=== PATIENT | female | born 1985 ===

== ENCOUNTER 2021-01-11 21:48 | Emergency (ER) | payer BC ==
[~2021-01-11] VITALS: Ht 152.4 cm; Wt 59.0 kg
[2021-01-11] MEDS ORDERED: NS IV 1000 ML 1,000 ML IV SCH ×2 (22:00→23:00)
[2021-01-11 22:15] LABS: BASOPHILS % (AUTO) 0 % (0-10); EOSINOPHILS # (AUTO) 0.1 10^3/uL (0.0-0.3); EOSINOPHILS % (AUTO) 1 % (0-10); HEMATOCRIT 36 % (35-52); HEMOGLOBIN 11.8 g/dL (11.5-16.0); LYMPHOCYTES # (AUTO) 2.5 10^3/uL (1.0-4.0); LYMPHOCYTES % (AUTO) 31 % (12-44); MEAN CORPUSCULAR HEMOGLOBIN 30 pg (25-34); MEAN CORPUSCULAR HGB CONC 33 g/dL (32-36); MEAN CORPUSCULAR VOLUME 90 fL (80-99); MONOCYTES # (AUTO) 0.5 10^3/uL (0.0-1.0); MONOCYTES % (AUTO) 7 % (0-12); NEUTROPHILS % (AUTO) 61 % (42-75); PLATELET COUNT 219 10^3/uL (130-400); WHITE BLOOD COUNT 8.1 10^3/uL (4.3-11.0)
[2021-01-11 22:32] LABS: INR 0.9 (0.8-1.4); PROTHROMBIN TIME PATIENT 12.8 SEC (12.2-14.7)
[2021-01-11 22:41] LABS: ALANINE AMINOTRANSFERASE 25 U/L (0-55); ALKALINE PHOSPHATASE 84 U/L (40-136); BILIRUBIN,TOTAL 0.2 MG/DL (0.1-1.0); BUN/CREATININE RATIO 19; CALCIUM 8.6 MG/DL (8.5-10.1); CARBON DIOXIDE 21 MMOL/L (21-32); CHLORIDE 107 MMOL/L (98-107); CREATININE SERUM 0.75 MG/DL (0.60-1.30); GFR ESTIMATED > 60; GLUCOSE 116 MG/DL (70-105); POTASSIUM 3.4 MMOL/L (3.6-5.0); SODIUM 140 MMOL/L (135-145); TOTAL PROTEIN 6.8 GM/DL (6.4-8.2)
[2021-01-12] MEDS ORDERED: LACTATED RINGERS 1,000 ML IV ONE (00:30)
--- NOTE | 2021-01-12 00:30 | ED GU-Female ---
General Chief Complaint: Female Reproductive Stated Complaint: POSS MISCARRIAGE Nursing Triage Note: TO ED VIA POV AND TO ROOM 2 VIA W/C. PT STATES SHE IS AND FEELS LIKE "SOMETHING IS FALLING OUT OF HER." Nursing Sepsis Screen: No Definite Risk Source: patient, spouse ( INTERPRETS AT TIMES) Exam Limitations: language barrier (PT SPEAKS FAIR SAMMARINESE. ) History of Present Illness Date Seen by Provider: Jan 11, 2021 Time Seen by Provider: 21:50 Initial Comments PT ARRIVES VIA POV FROM HOME WITH MULTIPLE FAMILY MEMBERS PT STATES SHE IS AND SHE BEGAN BLEEDING AND FEELS LIKE "SOMETHING IS FALLING OUT OF HER" PT STATES SHE HAD A NORMAL PERIOD OCT 15-, THEN HAD ANOTHER PERIOD OCT 30-, THEN HAD ANOTHER ONE NOV 10-. THEN DID NOT HAVE A PERIOD IN DECEMBER, HAD A TINY BIT OF SPOTTING YESTERDAY AND PASSED A VERY SMALL CLOT X 1 LAST NIGHT. JUST PRIOR TO ARRIVAL, SHE BEGAN TO HAVE HEAVY BLEEDING AND FELT LIKE SOMETHING IS FALLING OUT OF HER VAGINA NO ABDOMINAL PAIN NO NAUSEA/VOMITING NO FEVER NO PROBLEMS URINATING PT DID A TEST TODAY AND IT WAS POSITIVE PT IS AB 1--ALL NORMAL DELIVERIES PCP: FELISA Allergies and Home Medications Allergies Coded Allergies: Tetracycline (Verified Allergy, Unknown, 11/16/08) Patient Home Medication List Home Medication List Reviewed: Yes Review of Systems Review of Systems Constitutional: no symptoms reported; No dizziness Respiratory: no symptoms reported Cardiovascular: no symptoms reported Gastrointestinal: No abdominal pain, No nausea, No vomiting Genitourinary: see HPI LMP: Nov 10, 2020 Musculoskeletal: no symptoms reported; No back pain Skin: no symptoms reported Psychiatric/Neurological: No Symptoms Reported Endocrine: No Symptoms Reported Hematologic/Lymphatic: No Symptoms Reported Past [id number] Hx Past Med/Social Hx: Reviewed and Corrections made Patient Social History Alcohol Use: Denies Use Drug of Choice: DENIES Smoking Status: Never a Smoker Recent Infectious Disease Expo: No Seasonal Allergies Seasonal Allergies: No Past Medical History Surgeries: No Respiratory: No Cardiac: No Neurological: No : Yes Hx : 5 Hx Para: 3 Hx Total # of Abortions (Sp): 1 Reproductive Disorders: No Genitourinary: No Gastrointestinal: No Musculoskeletal: No Endocrine: No Psychosocial: No Integumentary: No Blood Disorders: No Physical Exam Vital Signs Vital Signs - First Documented 01/11/21 21:48 Pulse 93 Resp 16 B/P (MAP) 119/75 (90) O2 Delivery Room Air Capillary Refill : Less Than 3 Seconds Height, Weight, BMI Height: '" Weight: lbs. oz. kg; 25.00 BMI Method: General Appearance: WD/WN, no apparent distress (BUT ANXIOUS) HEENT: No pale conjunctivae (R), No pale conjunctivae (L) Cardiovascular: regular rate, rhythm, no murmur Respiratory: normal breath sounds, no respiratory distress, no accessory muscle use Gastrointestinal: non tender, soft, other (FUNDUS IS NOT PALPABLE. ) Pelvic: other (PT WITH BLOOD CLOTS AND PRODUCTS OF CONCEPTION ON EXTERNAL ASPECT OF VAGINA. LATER, ON SPECULUM EXAM. THERE ARE LARGE CLOTS IN VAGINA--CLEARED WITH GAUZE SPONGES. NO ACTIVE BLEEDING FROM CERVIX AT THIS TIME. CERVIX IS DILATED TO 1 FINGERTIP. UTERUS APPEARS APPROXIMATELY 6-8 WEEK SIZE. NO CERVICAL MOTION TENDERNESS. NO FUNDAL OR ADNEXAL TENDERESS. NO MASSES. ) Back: no CVA tenderness Extremities: normal inspection, no pedal edema, normal capillary refill Neurologic/Psychiatric: no motor/sensory deficits, alert, oriented x 3 Skin: normal color (PT IS ), warm/dry; No rash Progress/Results/Core Measures Suspected Sepsis Recent Fever Within 48 Hours: No Infection Criteria Present: None New/Unexplained Altered Menta: No Sepsis Screen: No Definite Risk SIRS Temperature: Pulse: 93 Respiratory Rate: 16 Laboratory Tests 01/11/21 22:05: White Blood Count 8.1 01/12/21 00:25: White Blood Count 10.7 01/12/21 01:30: White Blood Count 11.0 Blood Pressure 119 /75 Mean: 90 Laboratory Tests 01/11/21 22:05: Creatinine 0.75, INR Comment 0.9, Platelet Count 219, Total Bilirubin 0.2 01/12/21 00:25: Platelet Count 197 01/12/21 01:30: Platelet Count 183 Results/Orders Lab Results Laboratory Tests Test 01/11/21 22:05 01/12/21 00:25 01/12/21 01:30 Range/Units White Blood Count 8.1 10.7 11.0 4.3-11.0 10^3/uL Red Blood Count 3.95 3.32 L 3.17 L 3.80-5.11 10^6/uL Hemoglobin 11.8 10.0 L 9.9 L 11.5-16.0 g/dL Hematocrit 36 30 L 29 L 35-52 % Mean Corpuscular Volume 90 91 90 80-99 fL Mean Corpuscular Hemoglobin 30 30 31 25-34 pg Mean Corpuscular Hemoglobin Concent 33 33 35 32-36 g/dL Red Cell Distribution Width 12.6 12.8 12.8 10.0-14.5 % Platelet Count 219 197 183 130-400 10^3/uL Mean Platelet Volume 11.0 10.7 10.8 9.0-12.2 fL Immature Granulocyte % (Auto) 0 % Neutrophils (%) (Auto) 61 42-75 % Lymphocytes (%) (Auto) 31 12-44 % Monocytes (%) (Auto) 7 0-12 % Eosinophils (%) (Auto) 1 0-10 % Basophils (%) (Auto) 0 0-10 % Neutrophils # (Auto) 5.0 1.8-7.8 10^3/uL Lymphocytes # (Auto) 2.5 1.0-4.0 10^3/uL Monocytes # (Auto) 0.5 0.0-1.0 10^3/uL Eosinophils # (Auto) 0.1 0.0-0.3 10^3/uL Basophils # (Auto) 0.0 0.0-0.1 10^3/uL Immature Granulocyte # (Auto) 0.0 0.0-0.1 10^3/uL Prothrombin Time 12.8 12.2-14.7 SEC INR Comment 0.9 0.8-1.4 Activated Partial Thromboplast Time 32 24-35 SEC Sodium Level 140 135-145 MMOL/L Potassium Level 3.4 L 3.6-5.0 MMOL/L Chloride Level 107 98-107 MMOL/L Carbon Dioxide Level 21 21-32 MMOL/L Anion Gap 12 5-14 MMOL/L Blood Urea Nitrogen 14 7-18 MG/DL Creatinine 0.75 0.60-1.30 MG/DL Estimat Glomerular Filtration Rate > 60 BUN/Creatinine Ratio 19 Glucose Level 116 H 70-105 MG/DL Calcium Level 8.6 8.5-10.1 MG/DL Corrected Calcium 8.6 8.5-10.1 MG/DL Total Bilirubin 0.2 0.1-1.0 MG/DL Aspartate Amino Transf (AST/SGOT) 21 5-34 U/L Alanine Aminotransferase (ALT/SGPT) 25 0-55 U/L Alkaline Phosphatase 84 40-136 U/L Total Protein 6.8 6.4-8.2 GM/DL Albumin 4.0 3.2-4.5 GM/DL Human Chorionic Gonadotropin, Quant 33938 H <5 MIU/ML My Orders Orders - LEAH HEAD DO Ed Iv/Invasive Line Start (01/11/21 21:57) Monitor-Rhythm Ecg Trace Only (01/11/21:57) Cbc With Automated Diff (01/11/21:57) Comprehensive Metabolic Panel (01/11/21:57) Hcg,Quantitative (01/11/2157) Protime With Inr (01/11/21:57) Partial Thromboplastin Time (01/11/21:57) Abo Rh Type (01/11/21:57) Type And Screen (01/11/21:57) Ed Iv/Invasive Line Start (01/11/21 21:57) Ns Iv 1000 Ml (Sodium Chloride 0.9%) (01/11/21 22:00) Ed Iv/Invasive Line Start (01/11/21 22:56) Ns Iv 1000 Ml (Sodium Chloride 0.9%) (01/11/21 23:00) Cbc No Diff (01/11/21 23:56) Ed Iv/Invasive Line Start (01/12/21 00:23) Lactated Ringers (Lr 1000 Ml Iv Solution (01/12/21 00:30) Fentanyl Inj (Sublimaze Injection) (01/12/21 01:15) Cbc No Diff (01/12/21 01:23) Medications Given in ED Current Medications Medications Dose Ordered Sig/Ashley Route Start Time Stop Time Status Last Admin Dose Admin Fentanyl Citrate 12.5 mcg ONCE PRN IVP 01/12/21 01:15 01/12/21 01:08 12.5 MCG Lactated Ringer's 1,000 ml @ 0 mls/hr Q0M ONCE IV 01/12/21 00:30 01/12/21 00:31 DC 01/12/21 00:49 999 MLS/HR Vital Signs/I&O 01/11/21 21:48 Pulse 93 Resp 16 B/P (MAP) 119/75 (90) O2 Delivery Room Air 01/12/21 00:00 Intake Total 2000 ml Balance 2000 ml Capillary Refill : Less Than 3 Seconds Blood Pressure Mean: 90 Progress Note : Progress Note PRODUCTS SENT TO LAB FOR PATHOLOGY PT'S UNDERWEAR IS SATURATED WITH BLOOD, WITH MODERATE AMOUNT OF BLOOD ON PT'S SKIRT AND A BLANKET. SHORTLY AFTER ARRIVAL, PT GOT UP TO BEDSIDE COMMODE AND PASSED 500 ML OF BLOOD. AFTER THAT, PELVIC EXAM WAS DONE AND ALL CLOTS CLEARED FROM VAGINA PT HAD ONLY LIGHT BLEEDING AFTER THAT. DID NOT SATURATE ANY PADS FOR REMAINDER OF ER STAY PT HAD SOME SLIGHT CRAMPING, RELIEVED WITH FENTANYL PT GIVEN IV FLUIDS--DID HAVE SOME BLOOD PRESSURES IN THE 90'S, UP TO >100 SYSTOLIC AND REMAINED THERE FOR REMAINDER OF ER STAY PT OBSERVED IN ER FOR 4 HOURS, REPEAT HEMOGLOBINS X 2 WERE 10.0 AND 9.9 Departure Communication (PCP) [id number]--SPOKE WITH DR. ROJAS, [employer] HOUSE OPERATOR FOR [facility]. WILL OBSERVE IN ER F OR INCREASED BLEEDING, AND IF STABLE, MAY SEND HOME AND WILL FOLLOW UP IN CLINIC. IF BLEEDING PERSISTS OR WORSENS, WILL CALL [employer]INE[employer] OPERATOR. Impression Primary Impression: Miscarriage Additional Impression: Acute blood loss anemia Disposition: HOME, SELF-CARE Condition: Improved Departure-Patient Inst. Referrals: [facility] Patient Instructions: Miscarriage (DC) Add. Discharge Instructions: NOTHING IN VAGINA--NO TAMPONS, DOUCHING OR INTERCOURSE KEEP AN ACCURATE PAD COUNT, RETURN TO ER IF SOAKING MORE THAN 1 MAXI PAD AN HOUR TYLENOL AND MOTRIN NEEDED FOR PAIN FOLLOW UP WITH [facility] LATER TODAY FOR FURTHER CARE, CALL THIS MORNING TO MAKE AN APPOINTMENT All discharge instructions reviewed with patient and/or family. Voiced understanding. Work/School Note: Work Release Form Date Seen in the Emergency Department: Jan 11, 2021 Restrictions: Need Release from Doctor LEAH HEAD DO Jan 12, 2021 00:30
[2021-01-12 00:33] LABS: MEAN PLATELET VOLUME 10.7 fL (9.0-12.2); WHITE BLOOD COUNT 10.7 10^3/uL (4.3-11.0)
[2021-01-12] MEDS ORDERED: fentaNYL INJ 100 MCG/2 ML AMP IVP PRN (01:15)
[2021-01-12 01:40] LABS: HEMOGLOBIN 9.9 g/dL (11.5-16.0); MEAN PLATELET VOLUME 10.8 fL (9.0-12.2)
[2021-01-12 02:06] VITALS: BP 104/68
== END 2021-01-12 02:06 | disposition home or self-care (01) ==
LOC: EDUNIT# 21:49 → ER 21:52
DX: O03.9 Complete or unspecified spontaneous abortion without complication (principal); D62 Acute posthemorrhagic anemia; Z88.1 Allergy status to other antibiotic agents
CPT/HCPCS: 36415; 80053; 84702; 85025; 85027; 85610; 85730; 86850; 86900; 86901; 93041

== ENCOUNTER 2022-12-13 00:39 | Outpatient (CLI) | payer BC ==
[~2022-12-13] VITALS: Ht 159 cm; Wt 78.5 kg
[2022-12-13 00:46] VITALS: BP 119/77
[2022-12-13 01:17] VITALS: BP 119/75
[2022-12-13] MEDS ORDERED: BETAMETHASONE ACE/NA PHOS 6 MG/ML (CELESTONE SOLUSPAN) ONE (02:04)
[2022-12-13] MEDS ORDERED: LACTATED RINGERS 1,000 ML IV ONE (02:04)
[2022-12-13] MEDS ORDERED: LACTATED RINGERS 1,000 ML IV SCH (02:30)
[2022-12-13] MEDS ORDERED: BETAMETHASONE ACE/NA PHOS 6 MG/ML (CELESTONE SOLUSPAN) IM SCH (02:30)
[2022-12-13 02:35] VITALS: BP 119/75
[2022-12-13 03:05] VITALS: BP 116/73
[2022-12-13] MEDS ORDERED: AMPICILLIN FOR IV USE 2,000 MG in NS (IVPB) 50 ML IV SCH (03:05)
[2022-12-13] MEDS ORDERED: AZITHROMYCIN 250 MG TAB (ZITHROMAX) PO ONE (03:15)
--- NOTE | 2022-12-13 03:16 | Clinic Account Progress/Dx ---
Clinic Account Progress/Dx DIAGNOSIS: Date Seen by Provider: Dec 13, 2022 Time Seen by Provider: 03:08 1. 33w5d GA 2. rupture of membranes 3. labor Progress Note: This is a 37 yo at 33w5d with IZABEL 01/26/23 who presented to L&D with LOF. She reports she sat up in bed to sneeze and felt a gush of fluid. This occured at 10:50pm 12/12/22. She thought is was urine but continued to have intermittent leaking of fluid. She also noted some vaginal bleeding. Upon presentation to L&D she was noted to have a moist perineum with small amount of vaginal bleeding. Nitrazine test was negative, but a ROM Plus test was performed and positive for probable ROM. SVE closed. Initially patient was azar q3-4 min but was not feeling the contractions, she has continued to contract q2-6 min and is starting to be uncomfortable with the contractions. FHT Category 1 tracing, reassuring with accelerations and no decelerations. OB Hx: patient has hx of low-lying placenta with current , with a possible vessel overlying the cervix. Patient was seen by [facility] in Nov and reported placenta now >3cm from the os without evidence of placenta or vasa previa. They stated she can delivery vaginally and did not have further follow-up scheduled. 3 previous , 2 SAB; no other complications with . Patient will be transferred to [facility] due to anticipated delivery. Dr. Anderson accepting physician. Betamethasone 6mg given 12/13/22 0220 Ampicilling 2g IV and zithromax 1g po given prior to transfer. MARLEE ROJAS DO Dec 13, 2022 03:16
[2022-12-13 04:18] VITALS: BP 116/59
[2022-12-13] MEDS ORDERED: AMPICILLIN FOR IV USE 1,000 MG in NS (IVPB) 50 ML IV SCH (07:15)
== END 2022-12-13 05:19 | disposition other institution (70) ==
LOC: WSo 00:39 → LDRP 00:40 → WSo 05:19
PROVIDERS: ATTEND Family Medicine
DX: Z34.93 Encounter for supervision of normal pregnancy, unspecified, third trimester (principal); Z3A.33 33 weeks gestation of pregnancy
CPT/HCPCS: 84112; 87081; 96361; 96372; 96374; G0463; 99214